=== PATIENT | female | born 1950 | race Caucasian/White ===

== ENCOUNTER 2019-01-21 13:54 | Inpatient (IN) | payer MEDICARE ==
[~2019-01-21] VITALS: Ht 165.1 cm; Wt 68.6 kg
[2019-01-21] MEDS ORDERED: VANCOMYCIN 1GM/NS 250 ML 250 ML IV ONE (14:30)
[2019-01-21] MEDS ORDERED: FENTANYL CITRATE/PF 100MCG/2 ML INJ ONE (14:47)
[2019-01-21] MEDS ORDERED: MIDAZOLAM HCL 2 MG/2 ML VIAL ONE (14:47)
[2019-01-21 14:52] LABS: BILIRUBIN,URINE NEGATIVE (NEGATIVE); CLARITY,URINE CLEAR (CLEAR); COLOR,URINE YELLOW (YELLOW); KETONES,URINE NEGATIVE (NEGATIVE); LEUKOCYTE ESTERASE ,URINE SMALL (NEGATIVE); NITRITE,URINE NEGATIVE (NEGATIVE); PROTEIN,URINE DIPSTICK NEGATIVE (NEGATIVE); URINE UROBILINOGEN 0.2 mg/dL (0.2 - 1)
[2019-01-21 14:52] LABS: BASOPHILS % 0.1 % (0.0-1.0); EOSINOPHILS % 0.1 % (0.0-6.0); HEMATOCRIT 39.5 % (34.2-44.1); HEMOGLOBIN 13.2 g/dL (12.0-16.0); LYMPHOCYTES # (AUTO) 1.8 (1.0-3.2); LYMPHOCYTES % 22.9 % (18.0-39.1); MEAN CORPUSCULAR HGB CONC 33.4 g/dL (31-35); MEAN CORPUSCULAR VOLUME 83.7 fL (81-99); MONOCYTES # (AUTO) 0.9 (0.2-0.8); MONOCYTES % 12.3 % (4.4-11.3); NEUTROPHILS # (AUTO) 4.9 (2.1-6.9); NEUTROPHILS % 64.2 % (38.7-80.0); PLATELET COUNT 352 x10e3/uL (140-360); RED BLOOD COUNT 4.72 x10e6/uL (3.6-5.1); RED CELL DISTRIBUTION WIDTH 12.6 % (11.7-14.4)
[2019-01-21 15:01] LABS: INR 0.86; PROTHROMBIN TIME 12.2 seconds (11.9-14.5)
[2019-01-21 15:02] LABS: PARTIAL THROMBOPLASTIN TIME 24.8 seconds (23.8-35.5)
[2019-01-21 15:05] LABS: BACTERIA,URINE RARE /HPF; EPITHELIAL CELLS,URINE FEW /LPF; RBC,URINE 0-5 /HPF (0-5); WBC,URINE (MAN) 0-5 /HPF (0-5)
[2019-01-21 15:12] LABS: ALANINE AMINOTRANSFERASE 16 IU/L (0-55); ALBUMIN 3.7 g/dL (3.5-5.0); ALBUMIN/GLOBULIN RATIO 0.8 (0.8-2.0); ALKALINE PHOSPHATASE 95 IU/L (40-150); ANION GAP 14.3 mmol/L (8-16); BLOOD UREA NITROGEN 8 mg/dL (7-26); BUN/CREATININE RATIO 9 (6-25); CALCIUM 9.7 mg/dL (8.4-10.2); CARBON DIOXIDE 28 mmol/L (22-29); CHLORIDE 91 mmol/L (98-107); CREATINE KINASE 58 IU/L (29-168); CREATININE, SERUM 0.88 mg/dL (0.57-1.11); EST GLOMERULAR FILTRATION RATE > 60 ML/MIN (60-); GLUCOSE 123 mg/dL (74-118); MAGNESIUM 1.8 MG/DL (1.3-2.1); POTASSIUM 3.3 mmol/L (3.5-5.1); SODIUM 130 mmol/L (136-145)
[2019-01-21] MEDS ORDERED: TETANUS/DIPHTHERIA TOX ADULT 0.5 ML SYR IM ONE (15:15)
--- NOTE | 2019-01-21 16:14 | Diagnostic Imaging Report ---
LEFT WRIST X-RAY, 3 VIEWS - LEFT FOREARM X-RAY, 2 VIEWS HISTORY: ^FALL YESTERDAY, ABRASION WRIST MARKED SWELLING/CELLULITIS ^[id number] ^[id number] COMPARISON: None available. FINDINGS: Bones: Acute displaced fracture of the distal left radius with ventral displacement of the distal fragment and dorsal angulation of the radiocarpal joint. There is intra-articular extension. No lunate dislocation. There is also acute fracture of the ulnar styloid. Mild hyperexpansion lucency in the right fifth metacarpal may be due to old trauma. Diffuse bone demineralization. Joints: The joint spaces are well-maintained. Soft tissues: Soft tissue swelling surrounding the left wrist. IMPRESSION: Acute displaced fractures of the distal left radius and ulnar styloid. Signed by: Dr. Amy Mason M.D. on 01/21/2019 4:10 PM
--- NOTE | 2019-01-21 16:14 | Diagnostic Imaging Report ---
LEFT WRIST X-RAY, 3 VIEWS - LEFT FOREARM X-RAY, 2 VIEWS HISTORY: ^FALL YESTERDAY, ABRASION WRIST MARKED SWELLING/CELLULITIS ^[id number] ^[id number] COMPARISON: None available. FINDINGS: Bones: Acute displaced fracture of the distal left radius with ventral displacement of the distal fragment and dorsal angulation of the radiocarpal joint. There is intra-articular extension. No lunate dislocation. There is also acute fracture of the ulnar styloid. Mild hyperexpansion lucency in the right fifth metacarpal may be due to old trauma. Diffuse bone demineralization. Joints: The joint spaces are well-maintained. Soft tissues: Soft tissue swelling surrounding the left wrist. IMPRESSION: Acute displaced fractures of the distal left radius and ulnar styloid. Signed by: Dr. Amy Mason M.D. on 01/21/2019 4:10 PM
--- NOTE | 2019-01-21 16:18 | Diagnostic Imaging Report ---
EXAMINATION: CHEST SINGLE (NOT PORTABLE) INDICATION: ^FALL YESTERDAY ^20190121 ^[id number] COMPARISON: None FINDINGS: AP view TUBES and LINES: None. LUNGS: Lungs are well inflated. Lungs are clear. There is no evidence of pneumonia or pulmonary edema. PLEURA: No pleural effusion or pneumothorax. HEART AND MEDIASTINUM: The cardiomediastinal silhouette is unremarkable.. BONES AND SOFT TISSUES: No acute osseous lesion. Soft tissues are unremarkable. UPPER ABDOMEN: No free air under the diaphragm. IMPRESSION: No acute thoracic abnormality. Signed by: Dr. Amy Mason M.D. on 01/21/2019 4:15 PM
[2019-01-21] MEDS: PIPER-TAZ 3.375 GM 50 ML IV SCH ×2 (16:29→20:22)
[2019-01-21] MEDS ORDERED: MORPHINE SULFATE INJ 4 MG/ML INJ 1ML IV PRN (17:30)
[2019-01-21] MEDS ORDERED: ONDANSETRON HCL INJ 2MG/ML 2ML 2 MG/ML VIAL IV PRN (17:30)
--- OUTSIDE RECORDS SUMMARY | 2019-01-21 17:42 | XMS REPORT ---
[facility] Address Unknown Phone Unavailable Care Team Providers Care Litigation Counsel Name Role Phone Chucky HADLEY Unavailable Unavailable Problems This patient has no known problems. Allergies, Adverse Reactions, Alerts This patient has no known allergies or adverse reactions. Medications This patient has no known medications. Results Test Description Test Time Test Comments Text Results Atomic Results Result Comments CHEST SINGLE (NOT PORTABLE) 2019-01-21 16:11:00 [place] [address] Patient Name: MARBIN CASAS MR #: [id number] : 1950 Age/Sex: 68/F Req #: [id number] Adm Physician: Ordered by: ADOLFO HADLEY MD Report #: [id number] Location: ER Room/Bed: Procedure: [id number] DX/CHEST SINGLE (NOT PORTABLE) Exam Date: 01/21/19 Exam Time: 1454 REPORT STATUS: Signed EXAMINATION: CHEST SINGLE (NOT PORTABLE) INDICATION: FALL YESTERDAY 20190121 COMPARISON: None FINDINGS: AP view TUBES and LINES: None. LUNGS: Lungs are well inflated. Lungs are clear. There is no evidence of pneumonia or pulmonary edema. PLEURA: No pleural effusion or pneumothorax. HEART AND MEDIASTINUM: The cardiomediastinal silhouette is unremarkable.. BONES AND SOFT TISSUES: No acute osseous lesion. Soft tissues are unremarkable. UPPER ABDOMEN: No free air under the diaphragm. IMPRESSION: No acute thoracic abnormality. Signed by: Dr. Katie Keller M.D. on 01/21/2019 4:15 PM Dictated By: KATIE KELLER MD 14 Transcribed By: LATASHA on 01/21/191614 COPY TO: ADOLFO HADLEY MD FOREARM LEFT 2 VIEW 2019-01-21 16:08:00 [place] [id number] Patient Name: MARBIN CASAS MR #: [id number] : 1950 Age/Sex: 68/F Req #: [id number] Adm Physician: Ordered by: ADOLFO HADLEY MD Report #: [id number] Location: ER Room/Bed: Procedure: [id number] DX/FOREARM LEFT 2 VIEW Exam Date: 01/21/19 Exam Time: 1454 REPORT STATUS: Signed LEFT WRIST X-RAY, 3 VIEWS - LEFT FOREARM X-RAY, 2 VIEWS HISTORY: FALL YESTERDAY, ABRASION WRIST MARKED SWELLING/CELLULITIS [id number] COMPARISON: None available. FINDINGS: Bones: Acute displaced fracture of the distal left radius with ventral displacement of the distal fragment and dorsal angulation of the radiocarpal joint. There is intra-articular extension. No lunate dislocation. There is also acute fracture of the ulnar styloid. Mild hyperexpansion lucency in the right fifth metacarpal may be due to old trauma. Diffuse bone demineralization. Joints: The joint spaces are well-maintained. Soft tissues: Soft tissue swelling surrounding the left wrist. IMPRESSION: Acute displaced fractures of the distal left radius and ulnar styloid. Signed by: Dr. Katie Keller M.D. on 01/21/2019 4:10 PM Dictated By: KATIE KELLER MD 09 Transcribed By: LATASHA on 01/21/191609 COPY TO: ADOLFO HADLEY MD WRIST COMPLETE LEFT 2019-01-21 16:08:00 [place] [address] Patient Name: MARBIN CASAS MR #: [id number] : 1950 Age/Sex: 68/F Req #: [id number] Adm Physician: Ordered by: ADOLFO HADLEY MD Report #: [id number] Location: ER Room/Bed: Procedure: [id number] DX/WRIST COMPLETE LEFT Exam Date: 01/21/19 Exam Time: 145 REPORT STATUS: Signed LEFT WRIST X-RAY, 3 VIEWS - LEFT FOREARM X-RAY, 2 VIEWS HISTORY: FALL YESTERDAY, ABRASION WRIST MARKED SWELLING/CELLULITIS [id number] COMPARISON: None available. FINDINGS: Bones: Acute displaced fracture of the distal left radius with ventral displacement of the distal fragment and dorsal angulation of the radiocarpal joint. There is intra-articular extension. No lunate dislocation. There is also acute fracture of the ulnar styloid. Mild hyperexpansion lucency in the right fifth metacarpal may be due to old trauma. Diffuse bone demineralization. Joints: The joint spaces are well-maintained. Soft tissues: Soft tissue swelling surrounding the left wrist. IMPRESSION: Acute displaced fractures of the distal left radius and ulnar styloid. Signed by: Dr. Katie Keller M.D. on 01/21/2019 4:10 PM Dictated By: KATIE KELLER MD 161 Transcribed By: LATASHA on 01/21/191609 COPY TO: ADOLFO HADLEY MD
[2019-01-21] MEDS: SODIUM CHLORIDE 0.9% 1000ML 1,000 ML IV SCH (19:05)
[2019-01-21 20:45] VITALS: BP 155/74
[2019-01-21 21:00] VITALS: BP 155/74
--- NOTE | 2019-01-21 21:00 | NUR ---
Patient received via W/C from ER accompanied by daughter. JIMENEZO x 4. Admission history obtained. Initial physical assessment performed. Patient noted with sling to left arm (edematous). Patient oriented to room, call light and plan of care. Patient instructed about NPO status after midnight and to call for assistance when needed. Fall precautions implemented. Call light within reach.
[2019-01-21] MEDS ORDERED: LISINOPRIL-HCT1 EACH PO (23:28)
[2019-01-22] VITALS (8 sets, daily range): BP systolic 129–155; BP diastolic 63–74
[2019-01-22] MEDS: PIPER-TAZ 3.375 GM 50 ML IV SCH ×4 (02:05→21:00)
[2019-01-22] MEDS: SODIUM CHLORIDE 0.9% 1000ML 1,000 ML IV SCH ×3 (03:20→23:20)
[2019-01-22 06:37] LABS: BASOPHILS % 0.2 % (0.0-1.0); EOSINOPHILS % 0.2 % (0.0-6.0); HEMATOCRIT 35.9 % (34.2-44.1); LYMPHOCYTES # (AUTO) 1.7 (1.0-3.2); LYMPHOCYTES % 18.7 % (18.0-39.1); MEAN CORPUSCULAR HEMOGLOBIN 27.8 pg (28-32); MEAN CORPUSCULAR HGB CONC 33.4 g/dL (31-35); MEAN CORPUSCULAR VOLUME 83.3 fL (81-99); MONOCYTES % 11.7 % (4.4-11.3); NEUTROPHILS # (AUTO) 6.1 (2.1-6.9); NEUTROPHILS % 68.9 % (38.7-80.0); PLATELET COUNT 318 x10e3/uL (140-360); RED BLOOD COUNT 4.31 x10e6/uL (3.6-5.1); RED CELL DISTRIBUTION WIDTH 12.7 % (11.7-14.4)
--- NOTE | 2019-01-22 06:42 | NUR ---
Dr. Clau Conner paged regarding "Routine Consult" . Reason: Left distal Rad/Ulnar styloid fractures. Awaiting call back.
[2019-01-22 06:54] LABS: ALANINE AMINOTRANSFERASE 19 IU/L (0-55); ALBUMIN 3.2 g/dL (3.5-5.0); ALBUMIN/GLOBULIN RATIO 0.8 (0.8-2.0); ALKALINE PHOSPHATASE 77 IU/L (40-150); ANION GAP 12.7 mmol/L (8-16); BLOOD UREA NITROGEN 9 mg/dL (7-26); BUN/CREATININE RATIO 12 (6-25); CALCIUM 8.9 mg/dL (8.4-10.2); CARBON DIOXIDE 25 mmol/L (22-29); CHLORIDE 98 mmol/L (98-107); CREATININE, SERUM 0.76 mg/dL (0.57-1.11); EST GLOMERULAR FILTRATION RATE > 60 ML/MIN (60-); GLUCOSE 126 mg/dL (74-118); POTASSIUM 3.7 mmol/L (3.5-5.1); SODIUM 132 mmol/L (136-145)
--- NOTE | 2019-01-22 07:00 | NUR ---
Walking rounds done. Shift report given to oncoming nurse.
--- NOTE | 2019-01-22 07:31 | NUR ---
Received patient and alert responsive, no resp distress, left arm with edema and some redness, splint in place, elevated on pillows and spoke with Dr. Conner and will see patient this morning
--- NOTE | 2019-01-22 09:59 | NUR ---
ORTHOPEDIC CONSULTATION 68 yo right hand dominant female presents to the ED after a mechanical fall onto her left wrist with 1 day history of pain, swelling and erythema. Denies fevers, chills, numbness, paresthesias or loss of distal motor function. Denies pain in any other extremity. PMdHx: HTN Allergies: NKDA SurgHx: Cataracts FamHx: Non-contributory SocHx: Denies Tob, EtOH & Drug use VS: T 97.9, HR 68, RR 18, BP 129/63 O2 95% (RA) AOx3, NAD Left Wrist in Splint - clean dry and intact Skin: 2 cm x 2 cm abrasion over dorsal ulnar border of wrist with surrounding erythema that has already started to retreat within the demarcated lines from . No gross purulence noted. No obvious sign of arthrotomy noted Motor: + AIN, PIN, Radial, Median, Ulnar Sensation grossly intact Pulses + Radial, good capillary refill Compartments soft WBC 8.84 Hgb 12.0 Hct 35.9 Lactic Acid 13.8 Blood Cx: Pending XRays demonstrate left intra-articular volar fracture dislocation of distal radius and ulna 68 yo F with left intra-articular volar fracture dislocation of distal radius and ulna and overlying cellulitis At this time, patient is neurovascularly intact and comfortable. Recommend continued IV antibiotics to address cellulitis prior to open reduction internal fixation. Recommend wide spectrum antibiotics. Analgesics PRN Continue in splint to provide immobilization Daily erythema checks DVT Prophylaxis as per medicine NWB LUE Ice to decrease swelling Strict elevation of left upper extremity Plan for OR likely Wednesday to allow for decreased erythema and swelling prior to ORIF At this time, she has some mild erythema extending over her radial border of her first web space which would be problematic for a potential Ex-Fix. Because she is comfortable and neurologically intact, will remain in splint unless condition and presentation changes. Will need medical clearance prior to OR Kathia Conner, DO [facility].
--- NOTE | 2019-01-22 10:21 | NUR ---
H&P cc: left arm pain HPI: 68yoF, PCP , developed left arm pain, positive fx of ulnar and radius, and cellulitis present. PMH: HTN PSHx; cataract Allergies; see emr FH/SH; ; no cigs/etoh meds;see MAR ROS: no f/c/s/N/V/D/MIJARES/vision changes/cp/sob/dizziness v/s; revd PE tired appearing anicteric ns1s2 mod bs soft nt nd left hand edema and tenderenss; left arm mild erythema/warmth skin dry flat affect a&ox2; labs/meds; revd A/P: 68yoF Left arm cellulitis Left radius fx LEft ulnar styloid fx Hyponatremia Hypokalemia Obesity BMI 35.3 Hyperglycemia Prop: scd Dispo: Fede Wilkerson MD, PhD.
--- NOTE | 2019-01-22 10:29 | NUR ---
Consult to Dr. Brower for SHARAN on CK3 vs CKD4, called consult at this time.
[2019-01-22 10:55] LABS: CHOL/HDL RATIO 3.6 (3.0-3.6)
[2019-01-22] MEDS: CLINDAMYCIN 300MG 50 ML IV SCH ×2 (14:00→22:08)
--- NOTE | 2019-01-22 16:30 | NUR ---
Patient alert and responsive, OOB and had a show, Left arm to be elevated above chest level to decrease swelling and edema, splint in place, no c/o pains, will monitor.
--- NOTE | 2019-01-22 19:15 | NUR ---
Patient received sitting up in bed. AAO x 4. No acute distress noted. Left arm elevated on 2 pillows; splint/bandage on left arm in place. Call light within reach.
[2019-01-23] VITALS (8 sets, daily range): BP systolic 142–164; BP diastolic 60–104
[2019-01-23] MEDS: PIPER-TAZ 3.375 GM 50 ML IV SCH ×4 (02:25→20:40)
[2019-01-23] MEDS: CLINDAMYCIN 300MG 50 ML IV SCH ×3 (05:28→22:30)
--- NOTE | 2019-01-23 07:00 | NUR ---
Patient resting comfortably. Shift report given to oncoming nurse.
--- NOTE | 2019-01-23 07:00 | NUR ---
BEDSIDE SHIFT REPORT RECEIVED FROM THE SYSTEMS NAVIGATOR RN. PT DENIES NEEDS AT THIS TIME.
--- NOTE | 2019-01-23 07:05 | NUR ---
IM- progress note O/N no events ROS: no f/c/s/N/V/D/MIJARES/vision changes/cp/sob/dizziness v/s; revd PE tired appearing anicteric ns1s2 mod bs soft nt nd left hand edema and tenderenss; left arm mild erythema/warmth skin dry flat affect a&ox2; labs/meds; revd A/P: 68yoF Left arm cellulitis Left radius fx LEft ulnar styloid fx Hyponatremia Hypokalemia Obesity BMI 35.3 Hyperglycemia Prop: scd Dispo: PRE-operative Eval Functional status >4mets work Clinical risk: No hx CVA/CAD/CKD/DM; Sx risk: intermediate risk Therefore, pt may proceed to surgery WITHOUT further testing. Fede Wilkerson MD, PhD.
--- NOTE | 2019-01-23 07:45 | NUR ---
DR. GUEVARA AT BEDSIDE. OKAY TO RENEW BP HOME MED
--- NOTE | 2019-01-23 08:00 | NUR ---
PT TOOK BP MEDS ALREADY. EDUCATED PT ABOUT MEDICATION AND HOSPITAL POLICY. EDUCATED PT ABOUT FALL PRECAUTIONS. PT REFUSED BED ALARM. PT LEFT HAND SWELLING NOTED. ELEVATED ON PILLOWS. INFORMED PT TO CALL FOR ANY NEEDS. PT DAUGHTER AT BEDSIDE.
[2019-01-23] MEDS: LISINOPRIL 20 MG TAB PO SCH (08:02)
[2019-01-23] MEDS: HYDROCHLOROTHIAZIDE 25 MG TAB PO SCH (08:02)
[2019-01-23] MEDS: SODIUM CHLORIDE 0.9% 1000ML 1,000 ML IV SCH ×2 (09:20→12:24)
--- NOTE | 2019-01-23 14:30 | NUR ---
DR. SABA AT BEDSIDE. SPLINT IS PRESENT ON PT LEFT HAND. PT LEFT HAND IS SWOLLEN WITH BRUISES. PT INFORMED THE SAME TO THE DR. NO NEW ORDERS RECEIVED.
--- NOTE | 2019-01-23 19:00 | NUR ---
BEDSIDE SHIFT REPORT GIVEN TO THE UTILITIES ESTIMATOR AND DRAFTER RN. PT FAMILY AT BEDSIDE. PT DENIED FURTHER NEEDS.
--- NOTE | 2019-01-23 21:22 | NUR ---
ORTHOPEDIC PROGRESS NOTES Patient seen & examined resting comfortably at bedside. Denies fevers chills or worsening pain. VS 96.9 HR 72 RR 19 BP 149/71 O2 98% (RA) Left Upper Extremity In splint - clean dry and intact Motor: + AIN, PIN, Radial, Median, Ulnar Sensation grossly intact Pulses + good capillary refill Erythema looks to be improving however she has significant ecchymosis and swelling along anteromedial portion of upper arm 68 year old F with left distal radius and ulnar fracture with improving cellulitis Plan for ORIF on Wednesday Continue IV antibiotics Analgesics PRN NWB Continue splint Follow up labs DO TATUM [facility]
[2019-01-24] VITALS (8 sets, daily range): BP systolic 147–156; BP diastolic 76–97
[2019-01-24] MEDS: PIPER-TAZ 3.375 GM 50 ML IV SCH ×4 (02:42→20:00)
[2019-01-24] MEDS: SODIUM CHLORIDE 0.9% 1000ML 1,000 ML IV SCH (05:20)
[2019-01-24 05:32] LABS: BASOPHILS % 0.5 % (0.0-1.0); EOSINOPHILS # (AUTO) 0.2 (0.0-0.4); EOSINOPHILS % 2.8 % (0.0-6.0); HEMATOCRIT 34.8 % (34.2-44.1); HEMOGLOBIN 11.6 g/dL (12.0-16.0); LYMPHOCYTES # (AUTO) 1.2 (1.0-3.2); LYMPHOCYTES % 18.5 % (18.0-39.1); MEAN CORPUSCULAR HEMOGLOBIN 27.7 pg (28-32); MEAN CORPUSCULAR HGB CONC 33.3 g/dL (31-35); MEAN CORPUSCULAR VOLUME 83.1 fL (81-99); MONOCYTES # (AUTO) 0.8 (0.2-0.8); MONOCYTES % 12.6 % (4.4-11.3); NEUTROPHILS # (AUTO) 4.2 (2.1-6.9); NEUTROPHILS % 65.3 % (38.7-80.0); PLATELET COUNT 317 x10e3/uL (140-360); RED BLOOD COUNT 4.19 x10e6/uL (3.6-5.1); RED CELL DISTRIBUTION WIDTH 12.5 % (11.7-14.4)
[2019-01-24 05:53] LABS: INR 0.92; PROTHROMBIN TIME 12.8 seconds (11.9-14.5)
[2019-01-24 05:54] LABS: PARTIAL THROMBOPLASTIN TIME 27.3 seconds (23.8-35.5)
[2019-01-24 06:00] LABS: ANION GAP 13.7 mmol/L (8-16); BLOOD UREA NITROGEN 10 mg/dL (7-26); BUN/CREATININE RATIO 13 (6-25); CALCIUM 9.2 mg/dL (8.4-10.2); CARBON DIOXIDE 24 mmol/L (22-29); CHLORIDE 98 mmol/L (98-107); CREATININE, SERUM 0.75 mg/dL (0.57-1.11); EST GLOMERULAR FILTRATION RATE > 60 ML/MIN (60-); GLUCOSE 117 mg/dL (74-118); POTASSIUM 3.7 mmol/L (3.5-5.1); SODIUM 132 mmol/L (136-145)
[2019-01-24] MEDS: CLINDAMYCIN 300MG 50 ML IV SCH ×3 (06:02→22:00)
--- NOTE | 2019-01-24 06:33 | NUR ---
IM- progress note O/N no events ROS: no f/c/s/N/V/D/MIJARES/vision changes/cp/sob/dizziness v/s; revd PE tired appearing anicteric ns1s2 mod bs soft nt nd left hand edema and tenderenss; left arm mild erythema/warmth skin dry flat affect a&ox2; labs/meds; revd A/P: 68yoF Left arm cellulitis Left radius fx LEft ulnar styloid fx Hyponatremia Hypokalemia Obesity BMI 35.3 Hyperglycemia Prop: scd Dispo: PRE-operative Eval Functional status >4mets work Clinical risk: No hx CVA/CAD/CKD/DM; Sx risk: intermediate risk Therefore, pt may proceed to surgery WITHOUT further testing. 01/24 sx pending; pain controlled; Fede Wilkerson MD, PhD.
--- NOTE | 2019-01-24 07:00 | NUR ---
BEDSIDE SHIFT REPORT RECEIVED FROM THE WIND TECHNICIAN RN. BED LOW, WHEELS LOCKED, PT REFUSED BED ALARM. SIDE RAILS X2. CALL LIGHT WITH IN EASY REACH. PT FAMILY AT BEDSIDE. PT DENIES NEEDS AT THIS TIME.
[2019-01-24 07:12] LABS: ERYTHROCYTE SEDIMENTATION RATE 28 mm/hr (0-20)
--- NOTE | 2019-01-24 07:15 | NUR ---
DR. GUEVARA AT BEDSIDE. REPORTED PT SODIUM LEVEL 132 AND SWELLING AND BRUISES ON LEFT UPPER EXTREMITY. NO NEW ORDER RECEIVED
--- NOTE | 2019-01-24 07:20 | NUR ---
STOP IV FLUIDS PER DR. GUEVARA.
[2019-01-24] MEDS: HYDROCHLOROTHIAZIDE 25 MG TAB PO SCH (08:22)
[2019-01-24] MEDS: LISINOPRIL 20 MG TAB PO SCH (08:22)
--- NOTE | 2019-01-24 14:00 | NUR ---
RAC 20 G IV REMOVED DUE TO LEAKING. TIP INTACT. NO BLEEDING NOTED. DRESSING APPLIED. NEW IV STARTED 20 G RH. PT DENIED FURTHER NEEDS.
--- NOTE | 2019-01-24 19:00 | NUR ---
BEDSIDE SHIFT REPORT GIVEN TO THE BOX CLOSING MACHINE OPERATOR RN. PT FAMILY AT BEDSIDE. PT DENIED FURTHER NEEDS.
--- NOTE | 2019-01-24 20:00 | NUR ---
PT IN BED, LEFT ARM IN SPLINT, ELEVATED ON PILLOWS, INITIAL ASSESSMENT COMPLETE, CALL LIGHT IN REACH, CALL LIGHT IN REACH, NO DISTRESS NOTED, DR. LOPEZ HERE TO SEE PT, RIGHT HAND IV SL, NO TELE, PROCEDURE IN AM
--- NOTE | 2019-01-24 20:01 | NUR ---
ORTHOPEDIC PROGRESS NOTE Patient seen & examined. Denies fevers or chills, no worsening pain. VS T 96.7 HR 76 RR 19 BP 155/76 O2 98% Left Upper Extremity In Splint - clean, dry and intact Erythema improved Motor: + AIN, PIN, Radial, Median, Ulnar Sensation grossly intact Pulses + Radial Compartments soft WBC 6.43, ESR 28 68 yo F with left distal radius fracture and cellulitis Continue antibiotics Analgesics DVT Prophylaxis - hold after midnight IVF while NPO NPO except meds Plan for ORIF tomorrow Continue Splint DO TATUM [facility]
[2019-01-25] VITALS: BP 155/91
[2019-01-25] MEDS: PIPER-TAZ 3.375 GM 50 ML IV SCH ×4 (02:00→20:49)
[2019-01-25 05:20] VITALS: BP 144/90
[2019-01-25] MEDS: CLINDAMYCIN 300MG 50 ML IV SCH ×3 (05:39→21:49)
[2019-01-25] MEDS ORDERED: BUPIVACAINE HCL 0.5% INJ 30 ML VIAL INJ ONE ×2 (06:33→07:57)
--- NOTE | 2019-01-25 06:44 | NUR ---
IM- progress note O/N no events ROS: no f/c/s/N/V/D/MIJARES/vision changes/cp/sob/dizziness v/s; revd PE tired appearing anicteric ns1s2 mod bs soft nt nd left hand edema and tenderenss; left arm mild erythema/warmth skin dry flat affect a&ox2; labs/meds; revd A/P: 68yoF Left arm cellulitis Left radius fx LEft ulnar styloid fx Hyponatremia Hypokalemia Obesity BMI 35.3 Hyperglycemia Prop: scd Dispo: PRE-operative Eval Functional status >4mets work Clinical risk: No hx CVA/CAD/CKD/DM; Sx risk: intermediate risk Therefore, pt may proceed to surgery WITHOUT further testing. 01/24 sx pending; pain controlled; 01/25 sx pending Fede Wilkerson MD, PhD.
[2019-01-25] MEDS ORDERED: METOPROLOL TARTRATE INJ 1 MG/ML VIAL IV ONE (07:15)
[2019-01-25] MEDS ORDERED: HYDROMORPHONE 1MG/1ML INJ ONE (08:33)
[2019-01-25] MEDS ORDERED: VANCOMYCIN HCL 0 MG ONE (08:51)
[2019-01-25] MEDS ORDERED: VANCOMYCIN HCL 1 GM VIAL ONE (08:52)
[2019-01-25] MEDS: METOPROLOL TARTRATE 25 MG TAB PO SCH ×2 (09:00→20:50)
[2019-01-25] MEDS: HYDROCHLOROTHIAZIDE 25 MG TAB PO SCH (09:00)
[2019-01-25] MEDS: LISINOPRIL 20 MG TAB PO SCH (09:00)
[2019-01-25] MEDS ORDERED: KETOROLAC TROMETHAMINE 30 MG/ML VIAL ONE (11:15)
[2019-01-25] MEDS ORDERED: PROPOFOL IV EMULSION 10 MG/ML 20 ML VIAL ONE (11:15)
[2019-01-25] MEDS ORDERED: ONDANSETRON HCL INJ 2MG/ML 2ML 2 MG/ML VIAL ONE (11:15)
[2019-01-25] MEDS ORDERED: ACETAMINOPHEN 1000 MG/100 ML IV ONE (11:15)
[2019-01-25] MEDS ORDERED: DEXAMETHASONE SOD PHOS INJ 4 MG/ML VIAL ONE (11:15)
[2019-01-25] MEDS ORDERED: SEVOFLURANE INHAL SOLN 250 ML PEN BTL ONE (11:15)
[2019-01-25] MEDS ORDERED: LIDOCAINE HCL 2% LOCAL INJ 5 ML SDV VIAL INJ ONE (11:15)
[2019-01-25 12:05] VITALS: BP 141/81
--- NOTE | 2019-01-25 12:25 | NUR ---
OPERATIVE NOTE ORTHOPEDICS . PREOPERATIVE DIAGNOSIS: LEFT Displaced 2 part intraarticular distal radius and ulnar styloid fracture POSTOPERATIVE DIAGNOSIS: LEFT Displaced 3 part intraarticular distal radius and ulnar styloid fracture OPERATIONS PERFORMED: Open reduction and internal fixation of LEFT distal radius with Irrigation & Debridement SURGEON: Kathia Conner DO ANESTHESIA: General EBL: 15cc TOURNIQUET TIME: Min COMPLICATIONS: None. COMPONENTS: Evaristo Variax Distal Radius Plate 3 hole left narrow. 2.7 Locking Screws x 6, 2.7 Cortical Screws x 2 CLINICAL SUMMARY: The patient is a 68-year-old female who sustained a mechanical fall resulting in a fracture to the left distal radius and ulna OPERATION: The patient was brought to the operating table and placed in supine position and administered general anesthetic by the anesthesia. Preoperative antibiotics were provided. Once adequate anesthesia had been obtained, the LEFT upper extremity was prepped and draped in the usual sterile manner. The patient received preoperative antibiotics. Tourniquet was placed around the left upper extremity. The upper extremity was then elevated and exsanguinated using an Esmarch dressing. The tourniquet was elevated to 250 mmHg. The entire operation was performed with loop magnification. A small stab incision was placed over the area of laceration over the dorsoulnar abrasion. Upon investigation of the abrasion there appeared to be no intraarticular extension. The area was thoroughly irrigated and vancomycin powder was sprinkled within the wound. At this time an approximately 8 cm longitudinal incision was then made overlying the right flexor carpi radialis tendon from the flexion crease to the wrist proximally with a 45 degree radially directed incision distally. This was carried down to the flexor carpi radialis, which was then retracted ulnarly. The floor of the flexor carpi radialis sheath was then incised exposing the flexor pronator muscles. The flexor pollicis longus was retracted ulnarly and the remnants of the pronator quadratus was longitudinally incised 1 cm from its origin. It was then elevated off of the fracture site exposing the fracture site, which was dorsally displaced and shortened. This was an intraarticular three-part fracture. Under image control, the two volar pieces and dorsal pieces were then carefully manipulated and reduced. K-wires were used to temporarily hold the reduction. The fracture ends were copiously irrigated with normal saline and curetted and then the fracture was reduced in the usual fashion by recreating the defect and distracting it. The above listed implants were carefully placed under flouroscopy. Care was used to avoid intraarticular penetration while maintaining subchondral support which was verified via flouroscopy. Images were obtained and interpreted by me demonstrating adequate reduction of the fragments and the fracture with hardware in appropriate alignment. The incision was thoroughly irrigated and ho meostasis was maintained with electrocautery. 1 gm of Vancomycin powder was sprinkled over the plate The volar carpal ligaments were repaired and the remnants of the pronator quadratus were repair. The subcutaneous tissue was closed with a 3-0 PDS and the skin was closed with a 3-0 monocryl. The skin was cleaned and xeroform was placed over the incision. Through the use of an angiocatch, 10 cc of local anesthetic was placed within the incision. 4x4, Cling were used and a short arm volar splint was placed over the arm. The patient was then placed in a sling. The tourniquet was let down at 89 minutes. The fingers were immediat hermlio pink. The patient was awakened and taken to the recovery room in good condition. There were no operative complications. The patient tolerated the procedure well. Post operatively, the patient was examined and found to be neurovascularly intact. Plan for continued antibiotics for 24 hours post operatively with discharge home to follow.
[2019-01-25] MEDS ORDERED: SODIUM CHLORIDE 0.9% 250ML 250 ML ONE (13:41)
[2019-01-25 18:17] VITALS: BP 150/89
[2019-01-25 20:00] VITALS: BP 155/88
--- NOTE | 2019-01-25 20:00 | NUR ---
PATIENT C/O PAIN TO RIGHT FA IV. D/C IV. STARTED NEW IV TO RIGHT WRIST 22G. PATIENT TOLERATE WELL
[2019-01-25 21:00] VITALS: BP 155/88
--- NOTE | 2019-01-25 23:38 | NUR ---
PATIENT RECEIVED. PATIENT IS RESTING IN BED, AAOX3. LEFT ARM DRESSING NOTED, DRY AND INTACT, LEFT ARM ELEVATED ON PILLOWS. RESP EVEN AND UNLABORED. NO ACUTE DISTRESS NOTED. CALL LIGHT IN REACH. INSTRUCT TO CALL FOR ASSISTANCE. FAMILY AT BED SIDE. BED LOW/LOCKED. CONTINUE TO MONITOR CLOSELY Addendum: 01/25/19 at 2341 by Marie Nunez RN TIME 1929
[2019-01-26] VITALS (9 sets, daily range): BP systolic 119–161; BP diastolic 74–94
[2019-01-26] MEDS: PIPER-TAZ 3.375 GM 50 ML IV SCH ×4 (02:15→20:20)
[2019-01-26] MEDS: CLINDAMYCIN 300MG 50 ML IV SCH ×3 (05:22→21:30)
[2019-01-26 05:39] LABS: BASOPHILS % 0.2 % (0.0-1.0); EOSINOPHILS # (AUTO) 0.1 (0.0-0.4); HEMATOCRIT 34.4 % (34.2-44.1); HEMOGLOBIN 11.5 g/dL (12.0-16.0); LYMPHOCYTES # (AUTO) 0.6 (1.0-3.2); MEAN CORPUSCULAR HEMOGLOBIN 28.2 pg (28-32); MEAN CORPUSCULAR HGB CONC 33.4 g/dL (31-35); MEAN CORPUSCULAR VOLUME 84.3 fL (81-99); MONOCYTES # (AUTO) 1.2 (0.2-0.8); MONOCYTES % 18.8 % (4.4-11.3); NEUTROPHILS # (AUTO) 4.3 (2.1-6.9); NEUTROPHILS % 69.7 % (38.7-80.0); PLATELET COUNT 304 x10e3/uL (140-360); RED BLOOD COUNT 4.08 x10e6/uL (3.6-5.1); RED CELL DISTRIBUTION WIDTH 12.6 % (11.7-14.4)
--- NOTE | 2019-01-26 06:14 | NUR ---
IM- progress note O/N no events ROS: no f/c/s/N/V/D/MIJARES/vision changes/cp/sob/dizziness v/s; revd PE tired appearing anicteric ns1s2 mod bs soft nt nd left hand edema and tenderenss; left arm mild erythema/warmth skin dry flat affect a&ox2; labs/meds; revd A/P: 68yoF Left arm cellulitis Left radius fx LEft ulnar styloid fx Hyponatremia Hypokalemia Obesity BMI 35.3 Hyperglycemia Prop: scd Dispo: PRE-operative Eval Functional status >4mets work Clinical risk: No hx CVA/CAD/CKD/DM; Sx risk: intermediate risk Therefore, pt may proceed to surgery WITHOUT further testing. 01/24 sx pending; pain controlled; 01/25 sx pending 01/26 s/p sx. adjust metoprolol. Fede Wilkerson MD, PhD.
[2019-01-26] MEDS ORDERED: ACETAMINOPHEN 325 MG TAB PO PRN (06:30)
[2019-01-26] MEDS: ASPIRIN 325 MG TAB PO SCH (08:40)
[2019-01-26] MEDS: HYDROCHLOROTHIAZIDE 25 MG TAB PO SCH (08:40)
[2019-01-26] MEDS: LISINOPRIL 20 MG TAB PO SCH (08:41)
[2019-01-26] MEDS: METOPROLOL TARTRATE 25 MG TAB PO SCH ×2 (08:41→20:20)
--- NOTE | 2019-01-26 12:50 | NUR ---
CM to bedside to speak to pt about home health order. Pt declines need at this time. States she can have PT here teach her exercises and can do it herself at home. Cm left business card in case pt changes her mind. IMM letter delivered and explained to pt. She verbalized understanding. Signed copy placed in chart. Copy to pt.
--- NOTE | 2019-01-26 16:12 | NUR ---
ORTHOPEDIC PROGRESS NOTES Patient seen & examined resting comfortably in bed. Patient denies numbness, paresthesias or loss of distal motor function. Pain well controlled. VS 96.7 HR 67 RR 20 BP 121/76 O2 98% Left Upper Extremity In splint - clean dry and intact Motor: + Flex/Ext of Digits Sensation grossly intact to light touch Pulses + cap refill Compartments soft 68 yo F s/p Left Distal Radius ORIF POD #1 Continue antibiotics Analgesics PRN DVT Prophylaxis NWB JASMEET Patient orthopedically stable Follow up in office in 1 week Rest, Ice & Elevate DO TATUM [facility]
[2019-01-27] VITALS: BP 127/72
[2019-01-27] MEDS: PIPER-TAZ 3.375 GM 50 ML IV SCH ×2 (02:15→08:00)
[2019-01-27 04:00] VITALS: BP 137/84
[2019-01-27 05:29] LABS: BASOPHILS % 0.4 % (0.0-1.0); EOSINOPHILS # (AUTO) 0.3 (0.0-0.4); EOSINOPHILS % 5.3 % (0.0-6.0); HEMATOCRIT 33.8 % (34.2-44.1); HEMOGLOBIN 11.5 g/dL (12.0-16.0); LYMPHOCYTES # (AUTO) 0.8 (1.0-3.2); LYMPHOCYTES % 16.2 % (18.0-39.1); MEAN CORPUSCULAR HEMOGLOBIN 28.2 pg (28-32); MEAN CORPUSCULAR VOLUME 82.8 fL (81-99); MONOCYTES # (AUTO) 0.9 (0.2-0.8); MONOCYTES % 17.8 % (4.4-11.3); NEUTROPHILS % 60.1 % (38.7-80.0); PLATELET COUNT 308 x10e3/uL (140-360); RED BLOOD COUNT 4.08 x10e6/uL (3.6-5.1); RED CELL DISTRIBUTION WIDTH 12.6 % (11.7-14.4)
[2019-01-27] MEDS: CLINDAMYCIN 300MG 50 ML IV SCH (05:30)
[2019-01-27] MEDS ORDERED: TYLENOL WITH C1 EACH PO (06:37)
[2019-01-27] MEDS ORDERED: CLEOCIN HCL150 MG PO (06:37)
--- NOTE | 2019-01-27 06:39 | NUR ---
D/C summary Principal Dx: Left arm cellulitis Left radius fx LEft ulnar styloid fx Hyponatremia Hypokalemia Secondary Dx: Obesity BMI 35.3 Hyperglycemia Prop: scd Dispo: PRE-operative Eval Functional status >4mets work Clinical risk: No hx CVA/CAD/CKD/DM; Sx risk: intermediate risk Therefore, pt may proceed to surgery WITHOUT further testing. 01/24 sx pending; pain controlled; 01/25 sx pending 01/26 s/p sx. adjust metoprolol. 01/27 d/c home d/c home f/u pcp 1 week and Orthopedics 1 week stable d/c>35mins Fede Wilkerson MD, PhD.
[2019-01-27] MEDS: HYDROCHLOROTHIAZIDE 25 MG TAB PO SCH (09:00)
[2019-01-27] MEDS: ASPIRIN 325 MG TAB PO SCH (09:00)
[2019-01-27] MEDS: LISINOPRIL 20 MG TAB PO SCH (09:00)
[2019-01-27] MEDS: METOPROLOL TARTRATE 25 MG TAB PO SCH (09:00)
[2019-01-27 09:02] VITALS: BP 142/77
[2019-01-27 10:20] VITALS: BP 142/77
--- NOTE | 2019-01-27 10:21 | NUR ---
Received patient this morning and a/ox3, no resp distress, in bed, call light within reach, will monitor.
--- NOTE | 2019-01-27 10:23 | NUR ---
Patient with dressing to left upper extremity, denies any pains, tolerated morning meds, patient discharged by attending and will monitor.
--- NOTE | 2019-01-27 11:18 | NUR ---
Spoke with Dr. Conner and cleared patient for discharge. He wants his scripts discarded and to go ahead and give patient scripts written by Dr. Wilkerson.
--- NOTE | 2019-01-27 11:55 | NUR ---
Patient provided with discharge documentation, prescriptions provided, contacts for follow up appointment provided, IV line removed with cath tip in place, dressing applied and patient discharged.
[2019-01-27 12:00] VITALS: BP 132/64
== END 2019-01-27 12:01 | disposition home or self-care (01) | DRG 501 ==
LOC: ER 13:54 → ERHOLD 17:20 → MED/SURG2 20:39
PROVIDERS: ADMIT Internal Medicine; ATTEND Internal Medicine
PROC: 0PSJ04Z Reposition Left Radius with Internal Fixation Device, Open Approach (ICD-10-PCS; principal; 2019-01-21)
PROC: 0MQ Bursae and Ligaments, Repair (ICD-10-PCS; 2019-01-21)
DX: S52.92XA Unspecified fracture of left forearm, initial encounter for closed fracture (principal); L03.116 Cellulitis of left lower limb; E87.1 Hypo-osmolality and hyponatremia; S52.612A Displaced fracture of left ulna styloid process, initial encounter for closed fracture; E87.6 Hypokalemia; Z68.35 Body mass index [BMI] 35.0-35.9, adult; E11.65 Type 2 diabetes mellitus with hyperglycemia; W19.XXXA Unspecified fall, initial encounter; E66.01 Morbid (severe) obesity due to excess calories; I10 Essential (primary) hypertension
CPT/HCPCS: 36415; 71045; 80048; 80053; 80061; 81001; 82550; 82553; 83036; 83605; 83735; 84484; 85025; 85610; 85651; 85730; 86850; 86870; 86880; 86900; 86905; 87040; 87086; 90714; 97139; 99001; 99284; J1100; J1170; J1885; J2001; J2250; J2270; J2405; J2543; J3010; J3370; J7030; J7050

== ENCOUNTER 2019-03-07 11:53 | Outpatient (RCR) | payer MEDICARE ==
[~2019-03-07 11:53] MED LIST: CLEOCIN HCL150 MG PO; LISINOPRIL-HCT1 EACH PO; TYLENOL WITH C1 EACH PO
== END 2019-03-09 ==
LOC: OT 11:53
PROVIDERS: ATTEND Family Medicine
DX: S52.502D Unspecified fracture of the lower end of left radius, subsequent encounter for closed fracture with routine healing (principal); M25.532 Pain in left wrist; M25.632 Stiffness of left wrist, not elsewhere classified; M25.642 Stiffness of left hand, not elsewhere classified; R53.1 Weakness

== ENCOUNTER 2019-03-23 13:49 | Outpatient (RCR) | payer MEDICARE | END 2019-04-08 | LOC: OT 13:49 | PROVIDERS: ATTEND Family Medicine | DX: S52.502D Unspecified fracture of the lower end of left radius, subsequent encounter for closed fracture with routine healing (principal); M25.532 Pain in left wrist; M25.632 Stiffness of left wrist, not elsewhere classified; M25.642 Stiffness of left hand, not elsewhere classified; R53.1 Weakness | CPT/HCPCS: 97139 ==